=== PATIENT | male | born 1980 | race Caucasian/White ===

== ENCOUNTER 2023-11-15 14:32 | Inpatient (IN) | payer OTHER ==
[2023-11-15 15:02] VITALS: BMI 27.1
[2023-11-15] MEDS ORDERED: BISMUTH SUBSALICYLATE 524 MG/30 ML PO PRN (16:27)
[2023-11-15] MEDS ORDERED: DICYCLOMINE HCL 10 MG CAPSULE PO PRN (16:27)
[2023-11-15] MEDS ORDERED: IBUPROFEN 400 MG TABLET (FP) PO PRN (16:27)
[2023-11-15] MEDS ORDERED: METHOCARBAMOL 500 MG TABLET PO PRN (16:27)
[2023-11-15] MEDS ORDERED: ONDANSETRON *ODT* 4 MG TABLET SL PRN (16:27)
[2023-11-15] MEDS ORDERED: MAG HYDROX/AL HYDROX/SIMETH 30 ML UNIT-DOSE CUP PO PRN (16:27)
[2023-11-15] MEDS ORDERED: POLYETHYLENE GLYCOL (HEALTHYLAX) 3350 17 GM PACKET PO PRN (16:27)
[2023-11-15] MEDS ORDERED: guaiFENesin 600 MG TABLET.ER (FP) PO PRN (16:27)
[2023-11-15] MEDS ORDERED: BENZOCAINE/MENTHOL (CHLORASEPTIC ) LOZENGE MM PRN (16:27)
[2023-11-15] MEDS ORDERED: LOPERAMIDE HCL 2 MG CAPSULE PO PRN (16:27)
[2023-11-15] MEDS ORDERED: BENZONATATE 200 MG CAPSULE PO PRN (16:27)
[2023-11-15] MEDS ORDERED: IBUPROFEN 600 MG TABLET (FP) PO PRN (16:27)
[2023-11-15] MEDS ORDERED: ACETAMINOPHEN 325 MG TABLET (FP) PO PRN (16:27)
[2023-11-15] MEDS ORDERED: MAGNESIUM HYDROX 2400MG/30ML ORAL SUSPENSION 30 ML CUP PO PRN (16:27)
[2023-11-15] MEDS ORDERED: P-EPHED 60MG/TRIPROLIDI 2.5MG TABLET PO PRN (16:27)
[2023-11-15] MEDS ORDERED: chlordiazePOXIDE HCL 25 MG CAPSULE PO PRN (16:29)
[2023-11-15] MEDS ORDERED: propRANOLol HCL 10 MG TABLET PO ONE (17:00)
[2023-11-15] MEDS ORDERED: chlordiazePOXIDE HCL 25 MG CAPSULE ONE (18:00)
[2023-11-15] MEDS: chlordiazePOXIDE HCL 25 MG CAPSULE PO SCH (18:04)
[2023-11-15] MEDS: propRANOLol HCL 10 MG TABLET PO ONE (18:56)
[2023-11-15] MEDS: THIAMINE HCL 100 MG TABLET (FP) PO SCH (22:25)
[2023-11-15] MEDS: MELATONIN 5 MG TABLETS PO SCH (22:25)
[2023-11-16] MEDS: hydrOXYzine PAMOATE 25 MG CAPSULE (FP) PO ONE (07:05)
[2023-11-16 09:39] VITALS: BP 100/60; TEMP 98
[2023-11-16] MEDS: PRENATAL VITAMINS W/ FOLIC ACID TABLET (FP) PO SCH (10:18)
[2023-11-16 10:45] LABS: HEMATOCRIT 36.8 % (35.4-49); HEMOGLOBIN 11.7 GM/dL (11.7-16.9); MCH 26.8 pg (25.7-33.7); MCHC 31.9 g/dl (32.0-35.9); MEAN CELL VOLUME 84.1 fl (80-96); MEAN PLT VOLUME 11.2 fl (7.5-11.1); PLATELET COUNT 53 10^3/uL (134-434); RBC 4.37 M/mm3 (4.00-5.60); RDW 15.9 % (11.9-15.9); WHITE BLOOD COUNT 4.4 K/mm3 (4.0-10.0)
[2023-11-16 11:43] LABS: CHLORIDE 101 mmol/L (98-107); POTASSIUM 4.6 mmol/L (3.5-5.1); SODIUM 140 mmol/L (136-145)
[2023-11-16 11:45] LABS: ALBUMIN 3.6 g/dl (3.4-5.0); ANION GAP 8 mmol/L (4-13); BLOOD UREA NITROGEN 6.8 mg/dL (7-18); CALCIUM 9.4 mg/dL (8.5-10.1); CO2 31 mmol/L (21-32)
[2023-11-16 11:46] LABS: GLUCOSE,RANDOM 106 mg/dL (74-106)
[2023-11-16 11:49] LABS: CREATININE 0.5 mg/dL (0.55-1.3); SGOT/AST 117 U/L (15-37); SGPT/ALT 103 U/L (13-61)
[2023-11-16 11:50] LABS: TOT PROT 7.9 g/dl (6.4-8.2)
[2023-11-16 11:52] LABS: ALK PHOS 160 U/L (45-117)
[2023-11-16 11:53] LABS: BILIRUBIN,TOTAL 0.9 mg/dL (0.2-1)
[2023-11-16 13:29] VITALS: PULSE 70; RESP 16
[2023-11-17] MEDS ORDERED: chlordiazePOXIDE HCL 25 MG CAPSULE PO SCH (05:00)
[2023-11-18] MEDS ORDERED: chlordiazePOXIDE HCL 10 MG CAPSULE PO PRN
[2023-11-18] MEDS ORDERED: chlordiazePOXIDE HCL 10 MG CAPSULE PO SCH (05:00)
[2023-11-19] MEDS ORDERED: chlordiazePOXIDE HCL 10 MG CAPSULE PO SCH (05:00)
[2023-11-20] MEDS ORDERED: chlordiazePOXIDE HCL 10 MG CAPSULE PO ONE (05:00)
== END 2023-11-16 14:26 | disposition left against medical advice (07) | DRG 770 ==
LOC: YASAS 14:32 → Y3N 18:02
PROVIDERS: ADMIT Allergy & Immunology; ATTEND Surgery
PROC: HZ2ZZZZ Detoxification Services for Substance Abuse Treatment (ICD-10-PCS; principal; 2023-11-15)
DX: F10.230 Alcohol dependence with withdrawal, uncomplicated (principal); F10.24 Alcohol dependence with alcohol-induced mood disorder; Z86.59 Personal history of other mental and behavioral disorders; Z88.8 Allergy status to other drugs, medicaments and biological substances
CPT/HCPCS: 36415; 80053; 80307; 85027; 86780; 87635; 93005; 93010